=== PATIENT | male | born 1995 | race Caucasian/White ===

== ENCOUNTER 2023-12-26 22:23 | Emergency (ER) | payer BC, SELFPAY ==
[2023-12-26 22:45] VITALS: BP 116/86; PULSE 77; RESP 16; TEMP 37; O2SAT 98; BMI 28.4
--- NOTE | 2023-12-27 00:19 | ED_ITS ---
HPI - General Adult General Chief complaint: General Medical Stated complaint: swallowed pill wrong pipe Time Seen by Provider: 12/27/23 00:19 History of Present Illness ED Provider: Galo SUAREZ narrative: The patient is a 28-year-old male who developed an infection on his upper back behind his left shoulder over the weekend a few days ago. He went to an urgent care 2 days ago on Monday. Apparently some pus was expressed and he was placed on Bactrim. The next day he developed nausea and vomiting and he went to the emergency room at [facility] and he had a more formal incision made to assist with drainage of pus and I believe who was also prescribed mupirocin and doxycycline. A wound culture was sent at that time. This evening he was taking his antibiotics. When he was trying to swallow his doxycycline he says that he accidentally inhaled the doxycycline and he believes that it went down his ?wind pipe.? This provoked coughing and vomiting and he came to the emergency room. No fevers. Related Data Allergies Allergy/AdvReac Type Severity Reaction Status Date / Time lactose Allergy Diarrhea Verified 12/26/23 22:48 Review of Systems Review of Systems: Yes all other systems are reviewed and are negative [facility] Social History Social History Advance Directives: No Advance Directives Information Provided: Yes Do you have a plan to hurt others: No Plan Physical Exam ED Vital Signs: Vital Signs - 24 hr 12/26/23 22:45 Temperature 98.6 F Pulse Rate 77 Respiratory Rate 16 Blood Pressure 116/86 Pulse Oximetry 98 Oxygen Delivery Method Room Air BMI result Body Mass Index 28.4 Const Other: The patient looks as though he is an ordinarily healthy 28-year-old. He does not appear in acute distress. HENOR Head: Yes normal to inspection Mouth: Normal oral and palatal mucosa present and moist mucous membranes abnormal Eyes General: appearance normal, both eyes and all related structures Neck Other: No stridor Neck: Yes full ROM and Yes no lymphadenopathy Resp Effort & Inspection: normal respiratory effort Auscultation: clear to auscultation bilaterally Cardio Rate: regular rate Rhythm: regular rhythm Heart sounds: S1 normal heart sound present and S2 normal heart sound present Back/Spine/Pelvis Other: The patient has an area of redness on the left upper back overlying the scapula. A small incision has been made from which I can express pus. Skin Other: There is an area of erythema to the left upper back in which a small incision has been made and through which some pus can be expressed. There is no gross swelling or fluctuance. Neuro Other: The patient is awake and alert and seems grossly neurologically intact. Extrem Other: Extremities are unremarkable. Medical Decision Making Medical Decision Making MDM Narrative: The patient presents to the emergency room concerned that he had inhaled rather than swallowed a pill of doxycycline. He is not showing any signs of respiratory embarrassment and my suspicion for a significant aspiration event is low. He is on antibiotics because of a soft tissue skin infection in the left upper back over his left scapula. I can express pus from this lesion where he had a small incision made at the emergency room at [facility] a couple of days ago. I attempted to get culture results from [facility] but gotten no response. The patient will be discharged with instructions to try to find culture results from a culture that was [facility] a couple of days ago. Perhaps he will be able to stop 1 of his antibiotics (he is taking Bactrim and doxycycline). Given that the wound is still draining pus he was advised to follow up with his PCP's office or he was also given the number of the on-call surgeon with whom he may follow up for possible additional drainage procedure. Return to the emergency room if worse. Discharge Plan Discharge Clinical Impression: Aspiration into airway, Abscess of skin Patient Disposition: Home, Self-Care Additional Instructions: For the time being I would continue the antibiotics you have been previously prescribed. Please try to contact [facility] tomorrow to see if the wound culture has resulted. This may allow you to stop one of the antibiotics. It may be helpful to call your regular doctor's office to get this information. I think it would be good for somebody to look at your wound on the back of your left shoulder at the end of this week or early next week. You may contact your regular doctor's office. I have also given you the name and number of the surgeon on-call tonight and you could try calling them as well. Return to the emergency room if significantly worse. Referrals: [facility] Radha Rodriguez [Provider Group] (skin abscess) Kate Hernandez MD [Physician] - (skin abscess) Stand Alone Forms: Work/School Release Interventions: ED Discharge Assessment Last Done: 12/27/23 01:30 Discharge Date/Time: 12/27/23 01:31 Print Language: Vietnamese
[2023-12-27 01:30] VITALS: BP 116/86; PULSE 77; RESP 16; TEMP 37; O2SAT 98
== END 2023-12-27 01:31 | disposition home or self-care (01) ==
PROVIDERS: Emergency Provider Emergency Medicine
DX: J69.0 Pneumonitis due to inhalation of food and vomit (principal); L02.91 Cutaneous abscess, unspecified
CPT/HCPCS: 99283